=== PATIENT | male | born 1980 | race Caucasian/White ===

== ENCOUNTER 2021-12-22 23:35 | Inpatient (IN) | payer MEDICAID ==
[~2021-12-22] VITALS: Ht 172.7 cm; Wt 76.2 kg
[~2021-12-22 23:35] MED LIST: CEPH500C2 MT; FURO-151 MT; INSU100I28 SQ; LACT10SO30 MT; METF-416 MT; SPIR25TA MT
[2021-12-23] MEDS ORDERED: SODIUM CHLORIDE 0.9% 1,000 ML IV ONE (01:00)
[2021-12-23 01:10] LABS: BASOPHILS % 1.3 % (0.0-2.0); EOSINOPHILS % 2.4 % (0.0-5.0); HEMATOCRIT. 32.9 % (42.0-52.0); HEMOGLOBIN. 11.3 g/dL (14.0-18.0); LYMPHOCYTES % 9.3 % (20.0-50.0); MEAN CORPUSCULAR HEMOGLOBIN 29.7 pg (28.0-32.0); MEAN CORPUSCULAR VOLUME 86.7 fL (80.0-94.0); MONOCYTES % 7.9 % (2.0-8.0); NEUTROPHILS % 79.1 % (40.0-76.0); PLATELET 254 x1000/uL (130-400); RED BLOOD CELL COUNT 3.79 mill/uL (4.7-6.1); RED CELL DISTRIBUTION WIDTH 16.2 % (11.6-14.6)
[2021-12-23 01:31] LABS: INR 1.2; PARTIAL THROMBOPLASTIN TIME 29.6 sec (23.4-31.0); PROTHROMBIN TIME 12.6 sec (9.6-11.0)
[2021-12-23 01:40] LABS: CHLORIDE 101 mEq/L (98-107)
[2021-12-23 01:53] LABS: ETHANOL BLOOD < 10 mg/dL
[2021-12-23] MEDS ORDERED: LACTULOSE 20G/30ML UDC PO NR (03:00)
[2021-12-23] MEDS ORDERED: CLONIDINE 0.1MG TABLET PO PRN (06:45)
[2021-12-23] MEDS ORDERED: DOCUSATE SODIUM 100MG CAPSULE PO PRN (06:45)
[2021-12-23] MEDS ORDERED: NITROGLYCERIN 0.4MG TABLET SL SL PRN (06:45)
[2021-12-23] MEDS ORDERED: ONDANSETRON HCL 4MG/2ML INJ IV PRN (06:45)
[2021-12-23] MEDS ORDERED: ZOLPIDEM TARTRATE 5MG TABLET PO PRN (06:45)
[2021-12-23] MEDS ORDERED: GUAIFENESIN 200MG/10ML SUGAR FREE UDC PO PRN (06:45)
[2021-12-23] MEDS ORDERED: ACETAMINOPHEN 325MG TABLET PO PRN ×2 (06:45)
[2021-12-23] MEDS ORDERED: IPRATROPIUM/ALBUTEROL 0.5-3(2.5)MG/3ML NEB NEB PRN (06:45)
[2021-12-23] MEDS ORDERED: KETOROLAC 15MG/ML VIAL IV PRN (06:45)
[2021-12-23] MEDS ORDERED: MAGNESIUM/ALUMINUM HYDROXIDE/SIMETHICONE 30ML UDC PO PRN (06:45)
[2021-12-23 11:18] LABS: VITAMIN B12 SERUM 1016 pg/mL (211-911)
[2021-12-23 12:00] VITALS: BP 96/72
[2021-12-23 12:05] LABS: T4 FREE 1.57 ng/dL (0.76-1.46)
[2021-12-23] MEDS: ENOXAPARIN 40MG/0.4ML SYR SUBCUT SCH (13:40)
[2021-12-23] MEDS: PANTOPRAZOLE SODIUM 40 MG/VIAL IV SCH (13:41)
[2021-12-23] MEDS: LACTULOSE 20G/30ML UDC PO SCH ×3 (13:41→21:04)
[2021-12-23 16:00] VITALS: BP 98/70
[2021-12-23 16:48] VITALS: BP 98/65
[2021-12-23 20:00] VITALS: BP 99/71
[2021-12-24] VITALS: BP 99/72
[2021-12-24] MEDS: LACTULOSE 20G/30ML UDC PO SCH ×5 (00:11→20:43)
[2021-12-24 04:00] VITALS: BP 93/67
[2021-12-24 07:37] LABS: BASOPHILS % 1.8 % (0.0-2.0); EOSINOPHILS % 7.6 % (0.0-5.0); HEMATOCRIT. 30.3 % (42.0-52.0); HEMOGLOBIN. 10.4 g/dL (14.0-18.0); LYMPHOCYTES % 12.7 % (20.0-50.0); MEAN CORPUSCULAR HEMOGLOBIN 29.8 pg (28.0-32.0); MEAN CORPUSCULAR VOLUME 86.8 fL (80.0-94.0); MEAN PLATELET VOLUME 8.4 fl (7.4-10.4); NEUTROPHILS % 68.9 % (40.0-76.0); PLATELET 217 x1000/uL (130-400); RED BLOOD CELL COUNT 3.49 mill/uL (4.7-6.1); RED CELL DISTRIBUTION WIDTH 16.2 % (11.6-14.6)
[2021-12-24 08:00] VITALS: BP 96/68
[2021-12-24] MEDS: ENOXAPARIN 40MG/0.4ML SYR SUBCUT SCH (09:00)
[2021-12-24] MEDS: PANTOPRAZOLE SODIUM 40 MG/VIAL IV SCH (10:18)
[2021-12-24] MEDS ORDERED: LIDOCAINE HCL 1% 10 MG/ML 10ML VIAL ONE (13:41)
[2021-12-24] MEDS ORDERED: SODIUM BICARBONATE 4% (2.4MEQ) 5ML VIAL IV ONE (13:42)
[2021-12-24 16:00] VITALS: BP 89/66
[2021-12-24] MEDS ORDERED: ALBUMIN HUMAN 12.5GM/50ML (25%) IV NR (16:00)
[2021-12-24 19:32] LABS: CHLORIDE 103 mEq/L (98-107)
[2021-12-24 20:00] VITALS: BP 84/60
[2021-12-24 20:06] LABS: PHOSPHORUS 5.4 mg/dL (2.5-4.9)
[2021-12-25 00:11] VITALS: BP 87/57
[2021-12-25 04:00] VITALS: BP 88/57
[2021-12-25] MEDS: LACTULOSE 20G/30ML UDC PO SCH ×7 (04:00→23:30)
[2021-12-25 07:09] LABS: HEMATOCRIT 27.3 % (42.0-52.0); HEMOGLOBIN 9.5 g/dL (14.0-18.0); MEAN CORPUSCULAR VOLUME 86.4 fL (80.0-94.0); PLATELET 183 x1000/uL (130-400); RED BLOOD CELL COUNT 3.16 mill/uL (4.7-6.1); RED CELL DISTRIBUTION WIDTH 15.8 % (11.6-14.6)
[2021-12-25 08:12] LABS: PHOSPHORUS 4.5 mg/dL (2.5-4.9)
[2021-12-25] MEDS: PANTOPRAZOLE SODIUM 40 MG/VIAL IV SCH (09:11)
[2021-12-25] MEDS: ENOXAPARIN 40MG/0.4ML SYR SUBCUT SCH (09:15)
[2021-12-25 12:00] VITALS: BP 81/58
[2021-12-25 16:00] VITALS: BP 86/54
[2021-12-25 20:00] VITALS: BP 88/59
[2021-12-26] VITALS: BP 92/68
[2021-12-26 04:00] VITALS: BP 91/60
[2021-12-26] MEDS: LACTULOSE 20G/30ML UDC PO SCH ×7 (04:00→21:11)
[2021-12-26 06:21] LABS: HEMATOCRIT 26.8 % (42.0-52.0); HEMOGLOBIN 9.4 g/dL (14.0-18.0); MEAN CORPUSCULAR VOLUME 85.3 fL (80.0-94.0); PLATELET 180 x1000/uL (130-400); RED BLOOD CELL COUNT 3.15 mill/uL (4.7-6.1); RED CELL DISTRIBUTION WIDTH 15.4 % (11.6-14.6)
[2021-12-26 09:12] LABS: CHLORIDE 103 mEq/L (98-107)
[2021-12-26] MEDS: ENOXAPARIN 40MG/0.4ML SYR SUBCUT SCH (09:20)
[2021-12-26] MEDS: PANTOPRAZOLE SODIUM 40 MG/VIAL IV SCH (09:46)
[2021-12-26 12:00] VITALS: BP 96/65
[2021-12-26] MEDS: MIDODRINE HCL 2.5MG TABLET PO SCH ×2 (12:53→17:40)
[2021-12-26 16:00] VITALS: BP 98/66
[2021-12-26] MEDS ORDERED: DEXTROSE 50% WATER 50ML SYRINGE IV PRN (16:00)
[2021-12-26] MEDS: INSULIN LISPRO 100 UNITS/ML SUBCUT SCH ×2 (17:39→21:00)
[2021-12-26] MEDS: BLOOD SUGAR DIAGNOSTIC STRIP TEST SCH ×2 (17:40→21:03)
[2021-12-26 20:00] VITALS: BP 91/61
[2021-12-27] VITALS: BP 88/59
[2021-12-27] MEDS: LACTULOSE 20G/30ML UDC PO SCH ×6 (00:08→20:00)
[2021-12-27 04:00] VITALS: BP 138/75
[2021-12-27] MEDS: BLOOD SUGAR DIAGNOSTIC STRIP TEST SCH ×4 (07:01→20:35)
[2021-12-27 07:32] LABS: HEMATOCRIT 28.6 % (42.0-52.0); HEMOGLOBIN 9.8 g/dL (14.0-18.0); MEAN CORPUSCULAR HEMOGLOBIN 29.7 pg (28.0-32.0); MEAN CORPUSCULAR VOLUME 86.2 fL (80.0-94.0); PLATELET 191 x1000/uL (130-400); RED BLOOD CELL COUNT 3.32 mill/uL (4.7-6.1); RED CELL DISTRIBUTION WIDTH 15.9 % (11.6-14.6)
[2021-12-27 08:00] VITALS: BP 90/40
[2021-12-27] MEDS: PANTOPRAZOLE SODIUM 40 MG/VIAL IV SCH (08:36)
[2021-12-27] MEDS: MIDODRINE HCL 2.5MG TABLET PO SCH ×2 (08:37→12:10)
[2021-12-27] MEDS: ENOXAPARIN 40MG/0.4ML SYR SUBCUT SCH (08:37)
[2021-12-27] MEDS: INSULIN LISPRO 100 UNITS/ML SUBCUT SCH ×4 (08:38→20:51)
[2021-12-27 08:40] LABS: PHOSPHORUS 3.4 mg/dL (2.5-4.9)
[2021-12-27 12:00] VITALS: BP 95/61
[2021-12-27] MEDS: THIAMINE HCL 100MG TABLET PO SCH (12:10)
[2021-12-27] MEDS: FOLIC ACID 1MG TABLET PO SCH (12:10)
[2021-12-27] MEDS: FUROSEMIDE 20MG TABLET PO SCH (12:30)
[2021-12-27] MEDS ORDERED: MIDODRINE HCL 5MG TABLET PO SCH (13:00)
[2021-12-27 16:00] VITALS: BP 93/57
[2021-12-27] MEDS: MIDODRINE HCL 5MG TABLET PO SCH (16:04)
[2021-12-27 20:11] VITALS: BP 87/56
[2021-12-28 00:09] VITALS: BP 92/60
[2021-12-28] MEDS: LACTULOSE 20G/30ML UDC PO SCH ×7 (00:55→20:34)
[2021-12-28 04:00] VITALS: BP 90/48
[2021-12-28] MEDS: BLOOD SUGAR DIAGNOSTIC STRIP TEST SCH ×4 (07:17→20:34)
[2021-12-28] MEDS: INSULIN LISPRO 100 UNITS/ML SUBCUT SCH ×4 (07:35→20:34)
[2021-12-28 08:00] VITALS: BP 92/65
[2021-12-28] MEDS: ENOXAPARIN 40MG/0.4ML SYR SUBCUT SCH (08:42)
[2021-12-28] MEDS: THIAMINE HCL 100MG TABLET PO SCH (08:42)
[2021-12-28] MEDS: PANTOPRAZOLE SODIUM 40 MG/VIAL IV SCH (08:42)
[2021-12-28] MEDS: FOLIC ACID 1MG TABLET PO SCH (08:42)
[2021-12-28] MEDS: MIDODRINE HCL 5MG TABLET PO SCH ×3 (08:43→17:13)
[2021-12-28] MEDS: FUROSEMIDE 20MG TABLET PO SCH (08:43)
[2021-12-28] MEDS: SPIRONOLACTONE 25MG TABLET PO SCH (08:43)
[2021-12-28 12:00] VITALS: BP 84/53
[2021-12-28 16:00] VITALS: BP 88/55
[2021-12-28 20:00] VITALS: BP 91/60
[2021-12-28] MEDS ORDERED: TRAZODONE HCL 50MG TABLET PO SCH (21:00)
[2021-12-29] VITALS (7 sets, daily range): BP systolic 85–93; BP diastolic 52–61
[2021-12-29] MEDS: LACTULOSE 20G/30ML UDC PO SCH ×6 (05:20→20:00)
[2021-12-29] MEDS: BLOOD SUGAR DIAGNOSTIC STRIP TEST SCH ×4 (05:23→21:42)
[2021-12-29 06:38] LABS: HEMATOCRIT 25.3 % (42.0-52.0); HEMOGLOBIN 8.8 g/dL (14.0-18.0); MEAN CORPUSCULAR HEMOGLOBIN 29.9 pg (28.0-32.0); PLATELET 187 x1000/uL (130-400); RED BLOOD CELL COUNT 2.94 mill/uL (4.7-6.1); RED CELL DISTRIBUTION WIDTH 15.4 % (11.6-14.6)
[2021-12-29 08:14] LABS: PHOSPHORUS 3.3 mg/dL (2.5-4.9)
[2021-12-29] MEDS: PANTOPRAZOLE SODIUM 40 MG/VIAL IV SCH (08:54)
[2021-12-29] MEDS: ENOXAPARIN 40MG/0.4ML SYR SUBCUT SCH (08:55)
[2021-12-29] MEDS: THIAMINE HCL 100MG TABLET PO SCH (08:55)
[2021-12-29] MEDS: MIDODRINE HCL 5MG TABLET PO SCH ×3 (08:56→17:00)
[2021-12-29] MEDS: SPIRONOLACTONE 25MG TABLET PO SCH (08:56)
[2021-12-29] MEDS: FOLIC ACID 1MG TABLET PO SCH (08:56)
[2021-12-29] MEDS: FUROSEMIDE 20MG TABLET PO SCH (08:56)
[2021-12-29] MEDS: INSULIN LISPRO 100 UNITS/ML SUBCUT SCH ×4 (08:58→21:43)
[2021-12-29] MEDS ORDERED: TEMAZEPAM 15MG CAPSULE PO PRN (21:00)
[2021-12-29] MEDS ORDERED: TRAZODONE HCL 50MG TABLET PO SCH (21:00)
[2021-12-30] VITALS: BP 92/61
[2021-12-30 04:00] VITALS: BP 94/65
[2021-12-30] MEDS: LACTULOSE 20G/30ML UDC PO SCH ×6 (04:38→17:51)
[2021-12-30] MEDS: BLOOD SUGAR DIAGNOSTIC STRIP TEST SCH ×3 (06:18→17:40)
[2021-12-30] MEDS: INSULIN LISPRO 100 UNITS/ML SUBCUT SCH ×3 (06:18→17:51)
[2021-12-30 08:00] VITALS: BP_SYST 164; BP_SYST 88; BP_DIAS 61; BP_DIAS 95
[2021-12-30] MEDS: ENOXAPARIN 40MG/0.4ML SYR SUBCUT SCH (10:03)
[2021-12-30] MEDS: FUROSEMIDE 20MG TABLET PO SCH (10:03)
[2021-12-30] MEDS: THIAMINE HCL 100MG TABLET PO SCH (10:05)
[2021-12-30] MEDS: FOLIC ACID 1MG TABLET PO SCH (10:05)
[2021-12-30] MEDS: PANTOPRAZOLE SODIUM 40 MG/VIAL IV SCH (10:05)
[2021-12-30] MEDS: SPIRONOLACTONE 25MG TABLET PO SCH (10:06)
[2021-12-30] MEDS: MIDODRINE HCL 5MG TABLET PO SCH ×3 (10:23→17:51)
[2021-12-30 11:47] VITALS: BP 90/62
[2021-12-30 15:56] VITALS: BP 93/69
[2021-12-30 18:51] VITALS: BP 93/69
== END 2021-12-30 19:08 | DRG 279 ==
LOC: ER 23:54 → 7WST 12-23 03:47 → EDBEDREQ 12-23 03:50 → EDBEDREQTM 12-23 03:50 → ENRESERV 12-23 06:51
PROVIDERS: ADMIT Internal Medicine; ATTEND Internal Medicine
PROC: 0W9G30Z Drainage of Peritoneal Cavity with Drainage Device, Percutaneous Approach (ICD-10-PCS; principal; 2021-12-26)
DX: K76.7 Hepatorenal syndrome (principal); G93.41 Metabolic encephalopathy; E43 Unspecified severe protein-calorie malnutrition; K76.82 Hepatic encephalopathy; R64 Cachexia; N17.9 Acute kidney failure, unspecified; E72.4 Disorders of ornithine metabolism; R18.8 Other ascites; E11.22 Type 2 diabetes mellitus with diabetic chronic kidney disease; Z20.822 Contact with and (suspected) exposure to COVID-19; D63.1 Anemia in chronic kidney disease; E11.42 Type 2 diabetes mellitus with diabetic polyneuropathy; K74.60 Unspecified cirrhosis of liver; R26.9 Unspecified abnormalities of gait and mobility; I95.1 Orthostatic hypotension; N18.9 Chronic kidney disease, unspecified; Z87.891 Personal history of nicotine dependence; Z68.25 Body mass index [BMI] 25.0-25.9, adult; Z79.4 Long term (current) use of insulin; W18.30XA Fall on same level, unspecified, initial encounter; Y93.01 Activity, walking, marching and hiking; Y92.89 Other specified places as the place of occurrence of the external cause; Y99.8 Other external cause status
CPT/HCPCS: 36415; 49083; 71045; 76705; 76770; 80048; 80053; 80061; 80320; 82140; 82550; 82553; 82607; 82746; 82962; 83036; 83540; 83550; 83605; 83735; 83880; 84100; 84439; 84443; 84484; 85025; 85027; 87426; 93005; 93970; 97162; 97166; 99285; A6261; C9113; J1650; J1815; J3490; J7030; P9047; G0480

== ENCOUNTER 2022-02-26 10:54 | Emergency (ER) | payer MEDICAID ==
[~2022-02-26] VITALS: Ht 180.3 cm; Wt 73.0 kg
[~2022-02-26 10:54] MED LIST changes: -CEPH500C2 MT; +FOLI-43 PO; +FURO80TA87 MT; -INSU100I28 SQ; +LIDO700A30 TOP; -METF-416 MT; +MIDO5TAB4 PO; +THIA100T72 PO
[2022-02-26 12:55] LABS: BASOPHILS % 0.9 % (0.0-2.0); EOSINOPHILS % 0.3 % (0.0-5.0); LYMPHOCYTES % 8.9 % (20.0-50.0); MEAN CORPUSCULAR HEMOGLOBIN 28.1 pg (28.0-32.0); MEAN CORPUSCULAR VOLUME 81.9 fL (80.0-94.0); MEAN PLATELET VOLUME 7.9 fl (7.4-10.4); MONOCYTES % 9.1 % (2.0-8.0); NEUTROPHILS % 80.8 % (40.0-76.0); PLATELET 240 x1000/uL (130-400); RED BLOOD CELL COUNT 3.54 mill/uL (4.7-6.1); RED CELL DISTRIBUTION WIDTH 14.1 % (11.6-14.6)
[2022-02-26 13:02] LABS: INR 1.1; PROTHROMBIN TIME 11.8 sec (9.6-11.0)
[2022-02-26 14:15] LABS: CHLORIDE 107 mEq/L (98-107)
[2022-02-26] MEDS ORDERED: LIDOCAINE HCL 1% 10 MG/ML 10ML VIAL ONE (14:16)
[2022-02-26] MEDS ORDERED: SODIUM BICARBONATE 4% (2.4MEQ) 5ML VIAL IV ONE (14:16)
[2022-02-26] MEDS ORDERED: DEXTROSE 50% WATER 50ML SYRINGE IV ONE (16:45)
[2022-02-26] MEDS ORDERED: LIDO700A30 TOP (18:15)
[2022-02-26] MEDS ORDERED: MIDO5TAB4 PO (18:15)
[2022-02-26 18:27] VITALS: BP 92/62
== END 2022-02-26 18:30 | disposition home or self-care (01) ==
LOC: ER 10:54
DX: R18.8 Other ascites (principal); K74.60 Unspecified cirrhosis of liver; E10.649 Type 1 diabetes mellitus with hypoglycemia without coma; F32.A Depression, unspecified; Z20.822 Contact with and (suspected) exposure to COVID-19; Z79.4 Long term (current) use of insulin
CPT/HCPCS: 36415; 49083; 80053; 82962; 85025; 85610; 87426; 96374; 99285; C9803; J3490; Z7610

== ENCOUNTER 2022-03-16 09:39 | Emergency (ER) | payer MEDICAID ==
[~2022-03-16] VITALS: Ht 172.7 cm; Wt 72.6 kg
[2022-03-16 12:52] LABS: HEMATOCRIT. 27.2 % (42.0-52.0); HEMOGLOBIN. 9.2 g/dL (14.0-18.0); MEAN CORPUSCULAR HEMOGLOBIN 27.8 pg (28.0-32.0); MEAN CORPUSCULAR VOLUME 82.2 fL (80.0-94.0); MEAN PLATELET VOLUME 8.2 fl (7.4-10.4); PLATELET 208 x1000/uL (130-400); RED BLOOD CELL COUNT 3.31 mill/uL (4.7-6.1); RED CELL DISTRIBUTION WIDTH 15.4 % (11.6-14.6)
[2022-03-16 12:59] LABS: CHLORIDE 107 mEq/L (98-107)
[2022-03-16 13:12] LABS: INR 1.1; PROTHROMBIN TIME 11.9 sec (9.6-11.0)
[2022-03-16 13:30] LABS: PLATELET ESTIMATE NORMAL
[2022-03-16] MEDS ORDERED: POTASSIUM CHLORIDE 20MEQ TABLET SR PO ONE (13:30)
[2022-03-16] MEDS ORDERED: SODIUM BICARBONATE 4% (2.4MEQ) 5ML VIAL IV ONE (13:41)
[2022-03-16] MEDS ORDERED: LIDOCAINE HCL 1% 10 MG/ML 10ML VIAL ONE (13:41)
[2022-03-16] MEDS ORDERED: LIDOCAINE 5% PATCH TOP PRN (14:00)
[2022-03-16] MEDS ORDERED: ALBUMIN HUMAN 25GM/100ML (25%) IV ONE (15:45)
[2022-03-16] MEDS ORDERED: POTASSIUM CHLORIDE 20MEQ TABLET SR PO NR (16:00)
[2022-03-16] MEDS ORDERED: LIDO700A15 TP (16:59)
[2022-03-16] MEDS ORDERED: MIDO10TA MT (16:59)
[2022-03-16 18:12] VITALS: BP 94/67
== END 2022-03-16 18:15 | disposition home or self-care (01) ==
LOC: ER 09:39
DX: R18.8 Other ascites (principal); K74.60 Unspecified cirrhosis of liver; Z20.822 Contact with and (suspected) exposure to COVID-19; E11.65 Type 2 diabetes mellitus with hyperglycemia; E87.1 Hypo-osmolality and hyponatremia; E87.6 Hypokalemia; D64.9 Anemia, unspecified; E88.09 Other disorders of plasma-protein metabolism, not elsewhere classified; Z79.899 Other long term (current) drug therapy
CPT/HCPCS: 36415; 49083; 80053; 82962; 84484; 85025; 85610; 86850; 86900; 86901; 87426; 96374; 99285; C9803; J3490; P9047; Z7610

== ENCOUNTER 2022-03-25 09:24 | Emergency (ER) | payer MEDICAID ==
[~2022-03-25] VITALS: Ht 180.3 cm; Wt 88.0 kg
[~2022-03-25 09:24] MED LIST changes: +LIDO700A15 TP; +MIDO10TA MT
[2022-03-25 10:19] LABS: BASOPHILS % 2.4 % (0.0-2.0); EOSINOPHILS % 9.6 % (0.0-5.0); HEMATOCRIT. 28.4 % (42.0-52.0); HEMOGLOBIN. 9.6 g/dL (14.0-18.0); LYMPHOCYTES % 11.5 % (20.0-50.0); MEAN CORPUSCULAR HEMOGLOBIN 28.5 pg (28.0-32.0); MEAN CORPUSCULAR VOLUME 84.2 fL (80.0-94.0); MEAN PLATELET VOLUME 8.8 fl (7.4-10.4); MONOCYTES % 7.6 % (2.0-8.0); NEUTROPHILS % 68.9 % (40.0-76.0); PLATELET 214 x1000/uL (130-400); RED BLOOD CELL COUNT 3.38 mill/uL (4.7-6.1); RED CELL DISTRIBUTION WIDTH 15.6 % (11.6-14.6)
[2022-03-25 10:28] LABS: CHLORIDE 110 mEq/L (98-107)
[2022-03-25 10:31] LABS: INR 1.1; PROTHROMBIN TIME 11.6 sec (9.6-11.0)
[2022-03-25] MEDS ORDERED: SODIUM BICARBONATE 4% (2.4MEQ) 5ML VIAL IV ONE (13:07)
[2022-03-25] MEDS ORDERED: LIDOCAINE HCL 1% 10 MG/ML 10ML VIAL ONE (13:07)
[2022-03-25 15:14] VITALS: BP 100/68
== END 2022-03-25 15:52 | disposition home or self-care (01) ==
LOC: ER 09:36
DX: R18.8 Other ascites (principal); K74.60 Unspecified cirrhosis of liver; F32.A Depression, unspecified; E11.9 Type 2 diabetes mellitus without complications; Z20.822 Contact with and (suspected) exposure to COVID-19
CPT/HCPCS: 36415; 49083; 80053; 83690; 85025; 85610; 87070; 87075; 87205; 87426; 89050; 99284; C9803; J3490; Z7610

== ENCOUNTER 2022-04-15 18:01 | Emergency (ER) | payer MEDICAID ==
[~2022-04-15] VITALS: Ht 180.3 cm; Wt 77.0 kg
[2022-04-15] MEDS ORDERED: ONDANSETRON HCL 4MG/2ML INJ IV STA (23:49)
[2022-04-16 01:17] LABS: HEMATOCRIT. 32.5 % (42.0-52.0); HEMOGLOBIN. 10.7 g/dL (14.0-18.0); MEAN CORPUSCULAR HEMOGLOBIN 27.3 pg (28.0-32.0); MEAN CORPUSCULAR VOLUME 82.9 fL (80.0-94.0); MEAN PLATELET VOLUME 8.3 fl (7.4-10.4); PLATELET 360 x1000/uL (130-400); RED BLOOD CELL COUNT 3.92 mill/uL (4.7-6.1); RED CELL DISTRIBUTION WIDTH 15.5 % (11.6-14.6)
[2022-04-16 01:24] LABS: CHLORIDE 102 mEq/L (98-107)
[2022-04-16 01:38] LABS: PLATELET ESTIMATE NORMAL
[2022-04-16] MEDS: ONDANSETRON HCL 4MG/2ML INJ IV NR ×2 (04:21→05:38)
[2022-04-16 05:52] LABS: CLARITY URINE CLEAR (CLEAR); COLOR URINE DARK YELLOW (YELLOW); KETONES URINE NEGATIVE (NEGATIVE); LEUKOCYTE ESTERASE URINE NEGATIVE (NEGATIVE); NITRITE URINE NEGATIVE (NEGATIVE); OCCULT BLOOD URINE NEGATIVE (NEGATIVE); PROTEIN URINE TRACE (NEGATIVE); SPECIFIC GRAVITY URINE 1.014 (1.005-1.030); UROBILINOGEN URINE 0.2 E.U./dL (0.2-1.0)
[2022-04-16 06:10] LABS: INR 1.1; PARTIAL THROMBOPLASTIN TIME 30.9 sec (23.4-31.0); PROTHROMBIN TIME 11.9 sec (9.6-11.0)
[2022-04-16] MEDS ORDERED: LIDOCAINE HCL 1% 30ML VIAL (10MG/ML) ONE (07:41)
[2022-04-16] MEDS ORDERED: SODIUM BICARBONATE 4% (2.4MEQ) 5ML VIAL IV ONE ×2 (07:41→08:48)
[2022-04-16] MEDS ORDERED: MIDODRINE HCL 5MG TABLET PO ONE (08:15)
[2022-04-16] MEDS ORDERED: LIDOCAINE HCL 1% 10 MG/ML 10ML VIAL ONE (08:48)
[2022-04-16 12:29] VITALS: BP 94/58
== END 2022-04-16 12:40 | disposition home or self-care (01) ==
LOC: ER 18:44
DX: K70.31 Alcoholic cirrhosis of liver with ascites (principal); G90.9 Disorder of the autonomic nervous system, unspecified; F32.A Depression, unspecified; E11.9 Type 2 diabetes mellitus without complications; Z20.822 Contact with and (suspected) exposure to COVID-19
CPT/HCPCS: 36415; 49083; 71045; 80053; 81003; 82962; 83690; 83880; 84484; 85025; 85610; 85730; 87426; 93005; 96374; 99285; C9803; J2405; J3490; Z7610

== ENCOUNTER 2022-04-20 08:53 | Emergency (ER) | payer MEDICAID ==
[~2022-04-20] VITALS: Ht 170.2 cm; Wt 69.0 kg
[2022-04-20 08:57] VITALS: BP 97/57
[2022-04-20] MEDS ORDERED: SODIUM CHLORIDE 0.9% 500 ML IV ONE (09:45)
[2022-04-20 10:26] LABS: HEMOGLOBIN. 9.7 g/dL (14.0-18.0); MEAN CORPUSCULAR HEMOGLOBIN 27.8 pg (28.0-32.0); MEAN CORPUSCULAR VOLUME 80.5 fL (80.0-94.0); MEAN PLATELET VOLUME 7.7 fl (7.4-10.4); PLATELET 274 x1000/uL (130-400); RED BLOOD CELL COUNT 3.48 mill/uL (4.7-6.1); RED CELL DISTRIBUTION WIDTH 14.7 % (11.6-14.6)
[2022-04-20 10:32] LABS: CHLORIDE 102 mEq/L (98-107)
[2022-04-20 10:34] LABS: INR 1.2; PARTIAL THROMBOPLASTIN TIME 29.9 sec (23.4-31.0); PROTHROMBIN TIME 12.6 sec (9.6-11.0)
[2022-04-20 11:14] LABS: PLATELET ESTIMATE NORMAL
[2022-04-20] MEDS ORDERED: LIDOCAINE HCL 1% 10 MG/ML 10ML VIAL ONE (12:31)
[2022-04-20] MEDS ORDERED: SODIUM BICARBONATE 4% (2.4MEQ) 5ML VIAL IV ONE (12:32)
== END 2022-04-20 16:09 | disposition home or self-care (01) ==
LOC: ER 08:53
DX: K70.31 Alcoholic cirrhosis of liver with ascites (principal); F10.20 Alcohol dependence, uncomplicated; Z20.822 Contact with and (suspected) exposure to COVID-19; R94.31 Abnormal electrocardiogram [ECG] [EKG]; E11.9 Type 2 diabetes mellitus without complications; Y90.9 Presence of alcohol in blood, level not specified; I10 Essential (primary) hypertension
CPT/HCPCS: 36415; 49083; 71045; 80053; 83690; 83880; 85025; 85610; 85730; 87426; 93005; 96361; 96374; 99285; C9803; J3490; J7040; Z7610

== ENCOUNTER 2022-05-27 08:45 | Emergency (ER) | payer MEDICAID ==
[~2022-05-27] VITALS: Ht 180.3 cm; Wt 77.0 kg
[2022-05-27 08:47] VITALS: BP 102/68
[2022-05-27 09:52] LABS: EOSINOPHILS % 5.1 % (0.0-5.0); HEMATOCRIT. 22.8 % (42.0-52.0); HEMOGLOBIN. 7.5 g/dL (14.0-18.0); LYMPHOCYTES % 13.1 % (20.0-50.0); MEAN CORPUSCULAR HEMOGLOBIN 27.2 pg (28.0-32.0); MEAN CORPUSCULAR VOLUME 82.2 fL (80.0-94.0); MEAN PLATELET VOLUME 8.6 fl (7.4-10.4); MONOCYTES % 11.2 % (2.0-8.0); NEUTROPHILS % 68.6 % (40.0-76.0); PLATELET 179 x1000/uL (130-400); RED BLOOD CELL COUNT 2.78 mill/uL (4.7-6.1); RED CELL DISTRIBUTION WIDTH 14.4 % (11.6-14.6)
[2022-05-27 09:58] LABS: CHLORIDE 112 mEq/L (98-107)
[2022-05-27 10:00] LABS: INR 1.2; PROTHROMBIN TIME 12.4 sec (9.6-11.0)
[2022-05-27] MEDS ORDERED: LIDOCAINE HCL 1% 10 MG/ML 10ML VIAL ONE (10:13)
[2022-05-27] MEDS ORDERED: SODIUM BICARBONATE 4% (2.4MEQ) 5ML VIAL IV ONE (10:13)
[2022-05-27] MEDS ORDERED: LIDO700A30 TP (12:17)
== END 2022-05-27 13:53 | disposition home or self-care (01) ==
LOC: ER 08:45
DX: R18.8 Other ascites (principal); E11.9 Type 2 diabetes mellitus without complications; Z98.890 Other specified postprocedural states; Z20.822 Contact with and (suspected) exposure to COVID-19
CPT/HCPCS: 36415; 49083; 80053; 82962; 83690; 85025; 85610; 87426; 99285; C9803; J3490; Z7610

== ENCOUNTER 2022-10-30 08:09 | Emergency (ER) | payer MEDICAID ==
[~2022-10-30] VITALS: Ht 165.1 cm; Wt 75.0 kg
[~2022-10-30 08:09] MED LIST changes: -LACT10SO30 MT; +LACT10SO81 MT; +LIDO700A30 TP
[2022-10-30 08:13] VITALS: O2SAT 98
[2022-10-30 09:45] LABS: EOSINOPHILS % 4.9 % (0.0-5.0); HEMATOCRIT. 24.4 % (42.0-52.0); LYMPHOCYTES % 9.1 % (20.0-50.0); MEAN CORPUSCULAR HEMOGLOBIN 28.1 pg (28.0-32.0); MEAN CORPUSCULAR HGB CONC 32.9 g/dL (31.0-37.0); MEAN CORPUSCULAR VOLUME 85.3 fL (80.0-94.0); MEAN PLATELET VOLUME 8.8 fl (7.4-10.4); MONOCYTES % 11.9 % (2.0-8.0); NEUTROPHILS % 72.1 % (40.0-76.0); PLATELET 200 x1000/uL (130-400); RED BLOOD CELL COUNT 2.86 mill/uL (4.7-6.1); RED CELL DISTRIBUTION WIDTH 14.6 % (11.6-14.6); WHITE BLOOD COUNT 3.8 x1000/uL (4.5-11.0)
[2022-10-30 09:56] LABS: CHLORIDE 105 mEq/L (98-107); INDEX HEMOLYSI 1 (1-3); INDEX ICTERIC 1 (1-4); INDEX LIPEMIC 1 (1-3); POTASSIUM 4.3 mEq/L (3.5-5.1); SODIUM 132 mEq/L (136-145)
[2022-10-30 09:57] LABS: INR 1.1; PROTHROMBIN TIME 11.9 sec (9.6-11.0)
[2022-10-30 10:07] LABS: ALANINE AMINOTRANSFERASE 67 IU/L (13-61); ALBUMIN 2.8 g/dL (3.4-5.0); ASPARTATE AMINOTRANSFERASE 51 IU/L (15-37); BILIRUBIN TOTAL 0.5 mg/dL (0.1-1.0); CALCIUM 8.1 mg/dL (8.5-10.1); CARBON DIOXIDE 21 mEq/L (21-32); CREATININE 1.6 mg/dL (0.6-1.3); GLUCOSE 351 mg/dL (70-105); PROTEIN TOTAL 7.7 g/dL (6.0-8.3); UREA NITROGEN BLOOD 63 mg/dL (7-21)
[2022-10-30] MEDS ORDERED: ONDANSETRON 4MG ODT PO ONE (11:00)
[2022-10-30] MEDS ORDERED: CEPH500C2 MT (13:56)
[2022-10-30 14:04] VITALS: BP 114/73; PULSE 83; RESP 16; TEMP 98.1
== END 2022-10-30 14:30 | disposition home or self-care (01) ==
LOC: ER 08:17
DX: R14.0 Abdominal distension (gaseous) (principal); I10 Essential (primary) hypertension; E11.9 Type 2 diabetes mellitus without complications; Z98.890 Other specified postprocedural states; Z20.822 Contact with and (suspected) exposure to COVID-19
CPT/HCPCS: 80053; 85025; 85610; 36415; 73630; 49083; 99285; 87426; Q0162; Z7610 ×5; C9803

== ENCOUNTER 2022-11-30 08:47 | Emergency (ER) | payer MEDICAID ==
[~2022-11-30] VITALS: Ht 180.3 cm; Wt 80.0 kg
[~2022-11-30 08:47] MED LIST changes: +CEPH500C2 MT
[2022-11-30 08:58] VITALS: O2SAT 100
[2022-11-30 09:22] LABS: POTASSIUM 4.4 mEq/L (3.5-5.1)
[2022-11-30 09:24] LABS: HEMATOCRIT. 28.2 % (42.0-52.0); HEMOGLOBIN. 9.7 g/dL (14.0-18.0); MEAN CORPUSCULAR HEMOGLOBIN 29.3 pg (28.0-32.0); MEAN CORPUSCULAR HGB CONC 34.4 g/dL (31.0-37.0); MEAN PLATELET VOLUME 8.5 fl (7.4-10.4); PLATELET 170 x1000/uL (130-400); RED BLOOD CELL COUNT 3.32 mill/uL (4.7-6.1); RED CELL DISTRIBUTION WIDTH 15.8 % (11.6-14.6); WHITE BLOOD COUNT 3.8 x1000/uL (4.5-11.0)
[2022-11-30 09:26] LABS: INR 1.1; PROTHROMBIN TIME 11.9 sec (9.6-11.0)
[2022-11-30 09:33] LABS: DIFFERENTIAL COMMENT 1
[2022-11-30 10:27] LABS: ALBUMIN 2.9 g/dL (3.4-5.0); BILIRUBIN TOTAL 0.5 mg/dL (0.1-1.0); CREATININE 1.8 mg/dL (0.6-1.3); PROTEIN TOTAL 8.2 g/dL (6.0-8.3)
[2022-11-30 10:34] LABS: ANISOCYTOSIS 1+; PLATELET ESTIMATE NORMAL
[2022-11-30 18:00] VITALS: BP 120/81; PULSE 84; RESP 12; TEMP 99
== END 2022-11-30 18:10 | disposition home or self-care (01) ==
LOC: ER 08:47
DX: R18.8 Other ascites (principal); F32.A Depression, unspecified; E11.9 Type 2 diabetes mellitus without complications; I95.9 Hypotension, unspecified; F10.10 Alcohol abuse, uncomplicated; Z98.890 Other specified postprocedural states
CPT/HCPCS: 99285; 87426; 80053; 85025; 85610; 36415; C9803

== ENCOUNTER 2023-04-25 00:50 | Inpatient (IN) | payer MEDICAID ==
[~2023-04-25] VITALS: Ht 180.3 cm; Wt 77.2 kg
[2023-04-25] MEDS ORDERED: MORPHINE SULFATE 4 MG/ML INJ (FOR IV/IM USE) IV STA (01:11)
[2023-04-25 01:28] LABS: HEMATOCRIT. 24.5 % (42.0-52.0); HEMOGLOBIN. 8.3 g/dL (14.0-18.0); MEAN CORPUSCULAR HEMOGLOBIN 30.9 pg (28.0-32.0); MEAN CORPUSCULAR HGB CONC 33.7 g/dL (31.0-37.0); MEAN CORPUSCULAR VOLUME 91.6 fL (80.0-94.0); MEAN PLATELET VOLUME 7.7 fl (7.4-10.4); PLATELET 95 x1000/uL (130-400); RED BLOOD CELL COUNT 2.67 mill/uL (4.7-6.1); WHITE BLOOD COUNT 4.7 x1000/uL (4.5-11.0)
[2023-04-25 01:29] LABS: DIFFERENTIAL COMMENT 1
[2023-04-25 01:46] LABS: ALANINE AMINOTRANSFERASE 33 IU/L (10-49); ALBUMIN 3.5 g/dL (3.2-4.8); ASPARTATE AMINOTRANSFERASE 131 IU/L (<34); BILIRUBIN TOTAL 0.7 mg/dL (0.1-1.0); CALCIUM 7.9 mg/dL (8.7-10.4); CARBON DIOXIDE 19 mEq/L (21-32); CHLORIDE 97 mEq/L (98-107); CREATININE 1.8 mg/dL (0.6-1.3); ETHANOL BLOOD 239 mg/dL (<10); GLUCOSE 158 mg/dL (70-105); SODIUM 128 mEq/L (136-145); TROPONIN I HIGH SENSITIVITY 5 ng/L (3.0-53); UREA NITROGEN BLOOD 30 mg/dL (9-23)
[2023-04-25 01:50] LABS: POTASSIUM 2.6 mEq/L (3.5-5.1)
[2023-04-25 01:54] LABS: INR 1.2; PARTIAL THROMBOPLASTIN TIME 32.2 sec (23.4-31.0); PROTHROMBIN TIME 13.6 sec (9.6-11.0)
[2023-04-25] MEDS: SODIUM CHLORIDE 0.9% 1,000 ML IV ONE (03:17)
[2023-04-25] MEDS: KCL 20MEQ/100ML PREMIX 100 ML IV ONE (03:17)
[2023-04-25] MEDS: POTASSIUM CHLORIDE 20MEQ/PACKET PO ONE (03:17)
[2023-04-25] MEDS: MORPHINE SULFATE 4 MG/ML INJ (FOR IV/IM USE) IV NR (03:30)
[2023-04-25] MEDS: ONDANSETRON HCL 4MG/2ML INJ IV STA (03:30)
[2023-04-25] MEDS: ONDANSETRON HCL 4MG/2ML INJ IV NR (03:31)
[2023-04-25] MEDS: MAGNESIUM 1 G PREMIX 100 ML IV ONE (04:16)
[2023-04-25 06:06] LABS: PLATELET ESTIMATE NORMAL
[2023-04-25 06:19] LABS: CLARITY URINE CLOUDY (CLEAR); COLOR URINE YELLOW (YELLOW); GLUCOSE URINE NEGATIVE (NEGATIVE); KETONES URINE NEGATIVE (NEGATIVE); LEUKOCYTE ESTERASE URINE 3+ (NEGATIVE); NITRITE URINE NEGATIVE (NEGATIVE); OCCULT BLOOD URINE 2+ (NEGATIVE); PH URINE 5.5 (4.5-8.0); PROTEIN URINE 1+ (NEGATIVE); SPECIFIC GRAVITY URINE 1.009 (1.005-1.030); UROBILINOGEN URINE 0.2 E.U./dL (0.2-1.0)
[2023-04-25 07:09] LABS: SQUAMOUS EPITHELIAL CELL URINE RARE /lpf (RARE/1+)
[2023-04-25 07:10] LABS: BACTERIA URINE 4+; WBC URINE 50-100 /hpf (0-2)
[2023-04-25 07:11] LABS: RBC URINE 0-2 /hpf (0-2)
[2023-04-25 07:34] LABS: *AMPHETAMINES SCREEN URINE NEGATIVE (NEGATIVE); *BARBITURATES SCREEN URINE NEGATIVE (NEGATIVE); *BENZODIAZEPINES SCREEN URINE NEGATIVE (NEGATIVE); *COCAINE SCREEN URINE NEGATIVE (NEGATIVE); CANNABINOID URINE SCREEN PRESUMPTIVE POSITIVE (NEGATIVE); ECSTASY MDMA SCREEN URINE NEGATIVE (NEGATIVE); METHADONE URINE SCREEN Neg (NEGATIVE); OPIATES URINE SCREEN PRESUMPTIVE POSITIVE (NEGATIVE); PHENCYCLIDINE URINE SCREEN NEGATIVE (NEGATIVE)
[2023-04-25 09:00] VITALS: BP 94/59; PULSE 87; RESP 18; TEMP 90
[2023-04-25 10:23] VITALS: BP 94/59; PULSE 87; RESP 18; TEMP 98.7
[2023-04-25 12:00] VITALS: BP 105/59; PULSE 89; RESP 18; TEMP 97.8
[2023-04-25 13:42] LABS: HEPATITIS B SURFACE ANTIGEN NEGATIVE (Negative); HEPATITIS C AB NON REACTIVE (Neg) (Negative)
[2023-04-25] MEDS: INFLUENZA VACCINE 05/PF 0.5 ML SYRINGE IM ONE (14:00)
[2023-04-25] MEDS ORDERED: ACETAMINOPHEN 650MG/20.3ML UDC PO PRN (15:45)
[2023-04-25] MEDS ORDERED: DEXTROSE 50% WATER 50ML SYRINGE IV PRN (15:45)
[2023-04-25] MEDS ORDERED: HYDROCODONE/ACETAMINOPHEN 5/325MG TABLET PO PRN (15:45)
[2023-04-25 16:00] VITALS: BP 116/89; PULSE 92; RESP 17; TEMP 97.1
[2023-04-25] MEDS: INSULIN LISPRO 100 UNITS/ML SUBCUT SCH (17:33)
[2023-04-25] MEDS: BLOOD SUGAR DIAGNOSTIC STRIP TEST SCH (17:33)
[2023-04-25 20:00] VITALS: BP 103/79; PULSE 89; RESP 18; TEMP 97.8
[2023-04-25] MEDS ORDERED: ENOXAPARIN 40MG/0.4ML SYR SUBCUT SCH (21:00)
[2023-04-25] MEDS: PANTOPRAZOLE SODIUM 40 MG/VIAL IV SCH (22:33)
[2023-04-25] MEDS: POTASSIUM CHLORIDE 20MEQ TABLET SR PO NR (22:49)
[2023-04-25] MEDS: SPIRONOLACTONE 25MG TABLET PO NR (22:49)
[2023-04-25] MEDS: THIAMINE HCL 100MG TABLET PO SCH (22:50)
[2023-04-26] VITALS: BP 97/68; PULSE 83; RESP 17; TEMP 97.1
[2023-04-26 04:00] VITALS: BP 115/65; PULSE 86; RESP 19; TEMP 98.1
[2023-04-26 07:02] LABS: HEMATOCRIT. 25.7 % (42.0-52.0); HEMOGLOBIN. 8.9 g/dL (14.0-18.0); MEAN CORPUSCULAR HEMOGLOBIN 31.5 pg (28.0-32.0); MEAN CORPUSCULAR HGB CONC 34.8 g/dL (31.0-37.0); MEAN CORPUSCULAR VOLUME 90.7 fL (80.0-94.0); MEAN PLATELET VOLUME 8.4 fl (7.4-10.4); PLATELET 92 x1000/uL (130-400); RED BLOOD CELL COUNT 2.84 mill/uL (4.7-6.1); RED CELL DISTRIBUTION WIDTH 16.4 % (11.6-14.6); WHITE BLOOD COUNT 3.1 x1000/uL (4.5-11.0)
[2023-04-26 07:10] LABS: CARBON DIOXIDE 20 mEq/L (21-32); CHLORIDE 102 mEq/L (98-107); CREATININE 1.5 mg/dL (0.6-1.3); GLUCOSE 106 mg/dL (70-105); POTASSIUM 3.7 mEq/L (3.5-5.1); SODIUM 131 mEq/L (136-145); UREA NITROGEN BLOOD 27 mg/dL (9-23)
[2023-04-26 07:29] LABS: DIFFERENTIAL COMMENT 1
[2023-04-26 08:00] VITALS: BP 110/75; PULSE 86; RESP 18; TEMP 98
[2023-04-26] MEDS ORDERED: LIDOCAINE HCL 1% 10 MG/ML 10ML VIAL ONE (09:22)
[2023-04-26] MEDS ORDERED: SODIUM BICARBONATE 4% (2.4MEQ) 5ML VIAL IV ONE (09:22)
[2023-04-26 10:15] LABS: ANISOCYTOSIS 1+; PLATELET ESTIMATE SLIGHTLY DECREASED
[2023-04-26 12:00] VITALS: BP 138/93; PULSE 96; RESP 20; TEMP 98.1
[2023-04-26] MEDS ORDERED: NALOXONE HCL 0.4MG/ML VIAL IV PRN (14:15)
[2023-04-26] MEDS: ALBUMIN HUMAN 25GM/100ML (25%) IV NR (15:05)
[2023-04-26] MEDS: MAGNESIUM 2 G PREMIX 50 ML IV NR (15:11)
[2023-04-26 16:00] VITALS: BP 124/78; PULSE 85; RESP 18; TEMP 97.4
[2023-04-26 16:51] VITALS: BP 110/75; PULSE 86; TEMP 98; O2SAT 96
[2023-04-26] MEDS ORDERED: FAMOTIDINE 20MG/2ML VIAL IV SCH (21:00)
== END 2023-04-26 18:44 | disposition home or self-care (01) | DRG 280 ==
LOC: ER 00:50 → 7WST 07:55
PROVIDERS: ADMIT Internal Medicine; ATTEND Internal Medicine
PROC: 0W9G3ZZ Drainage of Peritoneal Cavity, Percutaneous Approach (ICD-10-PCS; principal; 2023-04-26)
DX: K70.31 Alcoholic cirrhosis of liver with ascites (principal); I95.9 Hypotension, unspecified; E11.9 Type 2 diabetes mellitus without complications; I10 Essential (primary) hypertension; F32.A Depression, unspecified; R14.0 Abdominal distension (gaseous); Z82.49 Family history of ischemic heart disease and other diseases of the circulatory system
CPT/HCPCS: 36415; 49083; 71045; 74176; 80048; 80053; 80305; 80320; 81003; 82962; 83036; 83735; 83880; 84484; 85025; 86705; 87077; 87186; 87340; 93005; 99285; C9113; J1815; J2270; J2405; J3475; J3480; J3490; J7030; P9047; G0480

== ENCOUNTER 2023-11-03 12:57 | Emergency (ER) | payer MEDICAID ==
[~2023-11-03] VITALS: Ht 167.6 cm; Wt 57.0 kg
[~2023-11-03 12:57] MED LIST changes: -CEPH500C2 MT; -FOLI-43 PO; -FURO-151 MT; -FURO80TA87 MT; -MIDO5TAB4 PO
[2023-11-03 13:06] VITALS: TEMP 97.4; O2SAT 100
[2023-11-03] MEDS: BACITRACIN ZINC OINT UDPKT TOP ONE (14:40)
[2023-11-03] MEDS: SODIUM CHLORIDE 0.9% 1,000 ML IV ONE (14:41)
[2023-11-03] MEDS: LIDOCAINE HCL/PF 1% 10 MG/ML 5ML VIAL INFIL ONE (14:41)
[2023-11-03] MEDS: ACETAMINOPHEN 325MG TABLET PO ONE (14:42)
[2023-11-03] MEDS ORDERED: LIDOCAINE HCL 1% 20ML VIAL INFIL ONE (18:15)
[2023-11-03] MEDS ORDERED: CEPH500C2 MT (18:22)
[2023-11-03 19:05] VITALS: BP 88/60; PULSE 78; RESP 20; O2SAT 97
== END 2023-11-03 19:06 | disposition home or self-care (01) ==
LOC: ER 12:57
DX: S81.812A Laceration without foreign body, left lower leg, initial encounter (principal); D64.9 Anemia, unspecified; F32.A Depression, unspecified; E11.9 Type 2 diabetes mellitus without complications; I10 Essential (primary) hypertension; Z98.890 Other specified postprocedural states; Z79.899 Other long term (current) drug therapy; W18.39XA Other fall on same level, initial encounter; Y93.89 Activity, other specified; Y92.89 Other specified places as the place of occurrence of the external cause; Y99.8 Other external cause status
CPT/HCPCS: 73562; 73610; 12005; 96360; 96361; 99284; J3490; J7030; Z7610